=== PATIENT | female | born 1955 | race Caucasian/White ===

== ENCOUNTER 2017-03-17 06:23 | Day surgery (SDC) | payer OTHER ==
[~2017-03-17 06:23] MED LIST: Buffered Lidocaine 0.9% SYRIN* 5 ML/SYR SYRINGE INTRADERM ONE
[2017-03-17] MEDS ORDERED: Lidocaine 1% INJ* 10 MG/ML 30 ML SDV ONE (07:03)
[2017-03-17] MEDS ORDERED: Clindamycin 900 MG IVPREMIX(* 900 MG/50 ML SDV IV ONE (07:14)
[2017-03-17] MEDS ORDERED: Midazolam* 1 MG/ML 2 ML VIAL (2 MG) ONE (07:40)
[2017-03-17] MEDS ORDERED: fentaNYL* 50 MCG/ML 2 ML VIAL (100 MCG VIAL) ONE (07:40)
[2017-03-17] MEDS ORDERED: Propofol* 10 MG/ML 20 ML BTL IV PUSH ONE (08:27)
[2017-03-17] MEDS ORDERED: Ibuprofen TAB* 400 MG PO PRN (08:40)
[2017-03-17] MEDS ORDERED: Acetaminophen TAB* 325 MG PO PRN (08:40)
[2017-03-17 09:18] VITALS: BP 130/74
--- NOTE | 2017-03-17 09:25 | RAD ---
INDICATION: Central venous catheter placement COMPARISON: February 15, 2017 TECHNIQUE: An AP portable view obtained at 0848 hours is submitted. FINDINGS: Bones/Soft Tissues: There are no acute bony findings. There is a left-sided infuse port catheter terminating in the SVC. There is no pneumothorax. Cardiomediastinal: The cardiomediastinal silhouette is normal. Lungs: There are no infiltrates. There is a mass in the medial right lung apex, unchanged Pleura: There are no pleural effusions. Other: None IMPRESSION: LEFT-SIDED [id number] CATHETER POSITIONED DESCRIBED. NO PNEUMOTHORAX. RIGHT APICAL MASS, UNCHANGED.
--- NOTE | 2017-03-17 09:38 | RAD ---
INDICATION: Left-sided catheter placement COMPARISON: None FINDINGS: 4.7 seconds of fluoroscopy were provided for the surgical department. Fluoroscopic spot imaging of the chest were obtained for operative control and show placement of left-sided Qaevbz-g-Nvow catheter with the tip at the right atrial junction . CPT II Codes: 6045F (fluoro time doc)
--- NOTE | 2017-03-17 15:16 | OP ---
CC: Tono Schroeder MD; Dr. Ale Allen; Anitha Jeffries MD OPERATIVE REPORT: DATE OF OPERATION: 03/17/17 DATE OF : 59 SURGEON: Tono Schroeder MD MEDICAL RADIATION TECH: None. ANESTHESIOLOGIST: Dr. Etienne. ANESTHESIA: LMAC anesthesia. PRE-OP DIAGNOSIS: Carcinoma of the lung POST-OP DIAGNOSIS: Carcinoma of the lung OPERATIVE PROCEDURE: Placement of left subclavian PowerPort. DESCRIPTION OF PROCEDURE: The patient was supine on the operative table. After adequate intravenous sedation, compression stockings, Michael Hugger warmer and intravenous antibiotics, the left chest and neck region were prepped with antiseptic, draped in a sterile fashion. Local infiltrative anesthesia was administered and approximately 3 cm subclavian incision was created. Inferior pocket was create d. Subclavian venipuncture was carried out. Guidewire was passed under fluoroscopic guidance. Cath eter passed through the peel-away introducer, measured and cut at 27 cm, attached to the port which w as sutured in the pocket with 2-0 Prolene. The pocket was then closed with 3-0 and 5-0 Vicryl. The port had good blood return and was flushed with saline solution and heparinized solution. Steri-Stri ps were placed. She tolerated the procedure well, was brought to Recovery in good condition. No com plications. No drains. No pathologic specimens. Sponge and instrument counts correct. Estimated b lood loss is less than 10 mL. [id number]/[facility] #: [id number]
== END 2017-03-17 09:35 | disposition home or self-care (01) ==
LOC: OR 06:23
PROVIDERS: ATTEND Surgery
DX: C34.11 Malignant neoplasm of upper lobe, right bronchus or lung (principal); Z87.891 Personal history of nicotine dependence; E78.00 Pure hypercholesterolemia, unspecified
CPT/HCPCS: 71010; 76000; C1788; J1642; J2250; J2704; J3010

== ENCOUNTER 2019-12-14 12:36 | Inpatient (IN) ==
[2019-12-14 13:55] LABS: Albumin 3.7 g/dL (3.2-5.2); Albumin/Globulin Ratio 1.5 (1-3); BUN/Creatinine Ratio 12.3 (8-20); EGFR African American 50.2 (>60); EGFR Non-African American 41.5 (>60); Globulin 2.5 g/dL (2-4); Potassium 3.8 mmol/L (3.5-5.0); Total Bilirubin 0.5 mg/dL (0.2-1.0); Total Protein 6.2 g/dL (6.4-8.9)
[2019-12-14 14:06] LABS: ABS Lymphocytes 0.4 10^3/ul (1.0-4.8); ABS Monocytes 0.1 10^3/ul (0-0.8); ABS Neutrophils 0.4 10^3/ul (1.5-7.7); Eosinophil % 3.4 %; Hematocrit 14 % (35-47); Hemoglobin 5.2 g/dL (12.0-16.0); Lymphocyte % 48.2 %; Mean Corpuscular HGB Conc 36 g/dL (31-36); Mean Corpuscular Hemoglobin 33 pg (27-31); Mean Corpuscular Volume 90 fL (80-97); Mean Platelet Volume 8.9 fL (7.4-10.4); Nucleated Red Blood Cells % 0.1; Platelet Count 15 10^3/uL (150-450); Red Cell Distribution Width 19 % (10-15); White Blood Count 0.9 10^3/uL (3.5-10.8)
[2019-12-14 15:14] LABS: ABS Lymphocytes 0.5 10^3/ul (1.0-4.8); ABS Monocytes 0.1 10^3/ul (0-0.8); ABS Neutrophils 0.4 10^3/ul (1.5-7.7); Eosinophil % 2.9 %; Hematocrit 15 % (35-47); Hemoglobin 5.6 g/dL (12.0-16.0); Lymphocyte % 51.2 %; Mean Corpuscular HGB Conc 36 g/dL (31-36); Mean Corpuscular Hemoglobin 33 pg (27-31); Mean Corpuscular Volume 90 fL (80-97); Nucleated Red Blood Cells % 0.8; Platelet Count 16 10^3/uL (150-450); Red Blood Count 1.69 10^6 /uL (3.70-4.87); Red Cell Distribution Width 19 % (10-15)
[2019-12-14] MEDS ORDERED: Ondansetron 4 mg VIAL 2 MG/ML 2 ml VIAL IV PRN (15:49)
[2019-12-14] MEDS ORDERED: NS 0.9% 1000 ml BAG 1,000 ML IV SCH (16:00)
[2019-12-14 22:14] LABS: Urine Appearance Clear; Urine Bilirubin Negative (Negative); Urine Blood Negative (Negative); Urine Color Straw; Urine Glucose Negative (Negative); Urine Ketones Negative (Negative); Urine Nitrite Negative (Negative); Urine Protein Negative (Negative); Urine Specific Gravity 1.014 (1.010-1.030); Urine Urobilinogen Negative (Negative)
[2019-12-15 02:50] LABS: Mean Platelet Volume 8.7 fL (7.4-10.4); Platelet Count 47 10^3/uL (150-450)
[2019-12-15 04:22] LABS: Hematocrit 20 % (35-47); Hemoglobin 7.2 g/dL (12.0-16.0); Mean Corpuscular HGB Conc 36 g/dL (31-36); Mean Corpuscular Hemoglobin 32 pg (27-31); Mean Corpuscular Volume 90 fL (80-97); Mean Platelet Volume 9.4 fL (7.4-10.4); Platelet Count 45 10^3/uL (150-450); Red Blood Count 2.26 10^6 /uL (3.70-4.87); Red Cell Distribution Width 15 % (10-15)
[2019-12-15 04:23] LABS: ABS Lymphocytes 0.5 10^3/ul (1.0-4.8); ABS Monocytes 0.1 10^3/ul (0-0.8); Lymphocyte % 50.6 %
[2019-12-15 04:24] LABS: ABS Neutrophils 0.4 10^3/ul (1.5-7.7)
[2019-12-15 05:06] LABS: Nucleated Red Blood Cells % 0.5
[2019-12-15 06:43] LABS: ABS Lymphocytes 0.5 10^3/ul (1.0-4.8); ABS Monocytes 0.1 10^3/ul (0-0.8); ABS Neutrophils 0.3 10^3/ul (1.5-7.7); Eosinophil % 3.6 %; Hematocrit 20 % (35-47); Hemoglobin 7.3 g/dL (12.0-16.0); Mean Corpuscular HGB Conc 36 g/dL (31-36); Mean Corpuscular Hemoglobin 32 pg (27-31); Mean Corpuscular Volume 89 fL (80-97); Mean Platelet Volume 8.4 fL (7.4-10.4); Nucleated Red Blood Cells % 0.5; Platelet Count 43 10^3/uL (150-450); Red Blood Count 2.27 10^6 /uL (3.70-4.87); Red Cell Distribution Width 15 % (10-15)
[2019-12-15 06:47] LABS: Albumin 3.5 g/dL (3.2-5.2); Albumin/Globulin Ratio 1.5 (1-3); BUN/Creatinine Ratio 11.6 (8-20); EGFR African American 59.6 (>60); EGFR Non-African American 49.3 (>60); Globulin 2.3 g/dL (2-4); Potassium 3.9 mmol/L (3.5-5.0); Total Bilirubin 0.9 mg/dL (0.2-1.0); Total Protein 5.8 g/dL (6.4-8.9)
[2019-12-16 06:05] LABS: ABS Lymphocytes 0.5 10^3/ul (1.0-4.8); ABS Monocytes 0.2 10^3/ul (0-0.8); ABS Neutrophils 0.3 10^3/ul (1.5-7.7); Eosinophil % 3.5 %; Hematocrit 20 % (35-47); Lymphocyte % 51.8 %; Mean Corpuscular HGB Conc 35 g/dL (31-36); Mean Corpuscular Hemoglobin 32 pg (27-31); Mean Corpuscular Volume 90 fL (80-97); Mean Platelet Volume 8.4 fL (7.4-10.4); Nucleated Red Blood Cells % 0.6; Platelet Count 56 10^3/uL (150-450); Red Blood Count 2.22 10^6 /uL (3.70-4.87); Red Cell Distribution Width 16 % (10-15)
[2019-12-16 15:44] VITALS: BP 109/55
[2019-12-18] MEDS ORDERED: Influenza VAC *QUAD* 2020-21* 0.5 ML SYRINGE IM ONE (09:00)
== END 2019-12-16 19:00 | disposition home or self-care (01) | DRG 809 ==
LOC: ED 12:36 → MEDTELE 15:49
PROVIDERS: ADMIT Internal Medicine Hematology & Oncology; ATTEND Internal Medicine Hematology & Oncology